=== PATIENT | male | born 1940 | race Caucasian/White ===

== ENCOUNTER 2019-07-21 14:55 | Inpatient (IN) | payer OTHER ==
[2019-07-21 16:18] LABS: Absolute Lymphocytes (CBC) 0.9 K/uL (0.7-4.9); Basophils % 0.5 % (0-1.3); Hematocrit 35.3 % (39.6-49.0); Lymphocytes % 13.1 % (15.3-44.8); MPV 9.8 fL (7.6-11.3); RBC Red Blood Cell Count 3.25 M/uL (4.33-5.43)
[2019-07-21 16:24] LABS: Albumin 3.8 g/dL (3.4-5.0); Bilirubin Direct 0.2 mg/dL (0-0.2); Bilirubin Total 0.4 mg/dL (0.2-1.0); Potassium 4.2 mmol/L (3.5-5.1); Protein, Total 7.4 g/dL (6.4-8.2)
--- NOTE | 2019-07-21 17:08 | RAD REPORT ---
EXAM DESCRIPTION: CT - Abdomen Pelvis W Contrast - 07/21/2019 4:47 pm CLINICAL HISTORY: Abdominal pain with rectal bleeding COMPARISON: 2015 TECHNIQUE: Computed axial tomography of the abdomen pelvis was obtained. 100 cc Isovue-300 was admin istered intravenously. Oral contrast was not requested which limits evaluation of bowel. All CT scans are performed using dose optimization technique as appropriate and may include automated exposure control or mA/KV adjustment according to patient size. FINDINGS: A 4.5 centimeter mass extends off of the upper pole right kidney. The mass contains areas of necrosis. No gross tumor thrombus within the right renal vein. There is cortical thinning left kidney. . Liver, spleen, pancreas and adrenals appear unremarkable. A 7 millimeter retrocrural lymph node. Cholelithiasis. Gallbladder wall does not appear thickened. There is no evidence of diverticulitis. Normal appendix. Proximal rectal wall appears mildly thickened. Small inguinal hernias contain fat IMPRESSION: 4.5 centimeter right renal mass likely renal cell carcinoma Apparent mild thickening of the proximal rectal wall may be secondary to a mass, inflammation or inco mplete distention
[2019-07-21 18:23] LABS: Urine Blood TRACE (NEG); Urine Glucose NEGATIVE (NEG); Urine Protein NEGATIVE (NEG); Urine pH 5.5 (5.0-7.0)
--- NOTE | 2019-07-21 18:59 | EDPHYS ---
Physician Documentation [facility] Name: Patrice Charles Age: 78 yrs Sex: Male : 1940 Arrival Date: 07/21/2019 Time: 14:57 Bed 20 Private MD: ED Physician Kasi Alvarado HPI: 07/21 16:31 This 78 yrs old Male presents to ER via Ambulatory with complaints of Rectal jr8 Bleeding. 16:31 The patient presents to the emergency department with bleeding from the rectum/anus, jr8 that is moderate. Onset: The symptoms/episode began/occurred acutely, today. Context: the patient has no known special context relating to the rectal area complaint(s). Modifying factors: The symptoms are alleviated by nothing, The symptoms are aggravated by bowel movement. Associate signs and symptoms: The patient has no apparent associated signs or symptoms. The patient has not experienced similar symptoms in the past. The patient has not recently seen a physician. Historical: - Allergies: 15:03 codeine sulfate; sg - Home Meds: 15:03 Motrin Oral [Active]; sg - PMHx: 15:03 BPH; Hypertension; UTI; sg - PSHx: 15:03 None; sg - Immunization history:: Adult Immunizations up to date. - Social history:: Smoking status: Patient/guardian denies using tobacco. - Ebola Screening: : Patient negative for fever greater than or equal to 101.5 degrees Fahrenheit, and additional compatible Ebola Virus Disease symptoms Patient denies exposure to infectious person Patient denies travel to an Ebola-affected area in the 21 days before illness onset No symptoms or risks identified at this time. ROS: 16:31 Eyes: Negative for injury, pain, redness, and discharge, ENT: Negative for injury, jr8 pain, and discharge, Neck: Negative for injury, pain, and swelling, Cardiovascular: Negative for chest pain, palpitations, and edema, Respiratory: Negative for shortness of breath, cough, wheezing, and pleuritic chest pain, Back: Negative for injury and pain, MS/Extremity: Negative for injury and deformity, Skin: Negative for injury, rash, and discoloration, Neuro: Negative for headache, weakness, numbness, tingling, and seizure. 16:31 Abdomen/GI: Positive for rectal bleeding, Negative for abdominal pain, nausea, vomiting, and diarrhea, constipation, abdominal cramps, abdominal distension, hematemesis, black/tarry stool, rectal pain, bowel incontinence, flatulence. Exam: 16:31 Eyes: Pupils equal round and reactive to light, extra-ocular motions intact. Lids and jr8 lashes normal. Conjunctiva and sclera are non-icteric and not injected. Cornea within normal limits. Periorbital areas with no swelling, redness, or edema. ENT: Nares patent. No nasal discharge, no septal abnormalities noted. Tympanic membranes are normal and external auditory canals are clear. Oropharynx with no redness, swelling, or masses, exudates, or evidence of obstruction, uvula midline. Mucous membranes moist. Neck: Trachea midline, no thyromegaly or masses palpated, and no cervical lymphadenopathy. Supple, full range of motion without nuchal rigidity, or vertebral point tenderness. No Meningismus. Cardiovascular: Regular rate and rhythm with a normal S1 and S2. No gallops, murmurs, or rubs. Normal PMI, no JVD. No pulse deficits. Respiratory: Lungs have equal breath sounds bilaterally, clear to auscultation and percussion. No rales, rhonchi or wheezes noted. No increased work of breathing, no retractions or nasal flaring. Back: No spinal tenderness. No costovertebral tenderness. Full range of motion. Skin: Warm, dry with normal turgor. Normal color with no rashes, no lesions, and no evidence of cellulitis. MS/ Extremity: Pulses equal, no cyanosis. Neurovascular intact. Full, normal range of motion. Neuro: Awake and alert, GCS 15, oriented to person, place, time, and situation. Cranial nerves II-XII grossly intact. Motor strength 5/5 in all extremities. Sensory grossly intact. Cerebellar exam normal. Normal gait. 16:31 Abdomen/GI: Inspection: abdomen appears normal, Bowel sounds: active, all quadrants, Palpation: abdomen is soft and non-tender, in all quadrants, mass, is not appreciated, rebound tenderness, is not appreciated, voluntary guarding, is not appreciated, involuntary guarding, is not appreciated, no appreciated organomegaly, Rectal exam: Prostate: enlarged, rectal tone normal, Stool: grossly bloody, hemorrhoid(s), are not appreciated, mass, is not appreciated, swelling, is not appreciated, tenderness, is not appreciated, fecal impaction, is not appreciated, the exam is chaperoned by the nurse, Indicators: McBurney's point is not tender, Choudhury's sign is negative, Rovsing's sign is negative, Liver: tenderness, is not appreciated. Vital Signs: 15:03 BP 164 / 82; Pulse 72; Resp 17; Temp 99.5; Pulse Ox 99% on R/A; Weight 79.38 kg; Height sg 5 ft. 6 in. (167.64 cm); Pain 0/10; 16:00 BP 149 / 59; Pulse 68; Resp 16 S; Pulse Ox 100% on R/A; Pain 0/10; em 17:45 BP 161 / 62; Pulse 61; Resp 16 S; Pulse Ox 97% on R/A; Pain 0/10; em 18:32 BP 158 / 63; Pulse 59; Resp 18; Pulse Ox 98% on R/A; Pain 0/10; em 20:12 BP 145 / 66; Pulse 65; Resp 18; Temp 97.5(O); Pulse Ox 96% on R/A; jb4 15:03 Body Mass Index 28.25 (79.38 kg, 167.64 cm) sg MDM: 15:24 Patient medically screened. jr8 18:09 Data reviewed: vital signs, nurses notes, lab test result(s), radiologic studies, CT jr8 scan. Data interpreted: Pulse oximetry: on room air is 97 %. Interpretation: normal. Counseling: I had a detailed discussion with the patient and/or guardian regarding: the historical points, exam findings, and any diagnostic results supporting the discharge/admit diagnosis, lab results, radiology results, the need to transfer to another facility, for higher level of care. ED course: Consulted Dr. Bonilla about star rectal bleeding but is not comfortable with taking patient due to new finding of renal cell carcinoma unless hospitalist is ok with it. Consulted Hospitalist Dr. Pulliam about patient and findings. Wants us to transfer patient because of the renal cell carcinoma as well. Explained to both of them that the bleeding is the main concern. That a renal cell carcinoma can be f/u out patient clark for staging and resection. Dr. Pulliam still wants us to transfer . 18:29 ED course: I spoke with GI and Hospitalist about patient. Discussed with them the GI jr8 findings along with incident Renal Cell carcinoma findings. GI accepted. Hospitalist stated that she would except if hospital mainframe systems administrator is ok with it. Would get back to us in a few moments . 18:50 ED course: [facility] administratively declined patient due to Renal Cell Carcinoma jr8 being an incidental finding. That we have necessary specialists at this time to take care of immediate problem. 07/21 15:34 Order name: Basic Metabolic Panel; Complete Time: 16:41 8 07/21 15:34 Order name: CBC with Diff; Complete Time: 20:53 8 07/21 15:34 Order name: Creatinine for Radiology; Complete Time: 16:41 8 07/21 15:34 Order name: Hepatic Function; Complete Time: 16:41 [facility] 07/21 15:34 Order name: Lipase; Complete Time: 16:41 [facility] 07/21 15:34 Order name: TS; Complete Time: 16:51 07/21 15:34 Order name: IV Saline Lock; Complete Time: 15:50 07/21 15:34 Order name: Labs collected and sent; Complete Time: 15:50 [facility] 07/21 15:35 Order name: CT Abd/Pelvis - IV Contrast Only; Complete Time: 17:22 [facility] 07/21 17:34 Order name: Urine Dipstick-Ancillary (obtain specimen); Complete Time: 18:32 [facility] 07/21 18:20 Order name: Urine Dipstick--Ancillary (enter results) eb 07/21 18:24 Order name: Urine Dipstick-Ancillary; Complete Time: 18:32 EDMS 07/21 20:53 Order name: CBC Smear Scan; Complete Time: 20:53 EDMS Administered Medications: No medications were administered Disposition: 07/21/19 18:58 Hospitalization ordered by Russ Pulliam for Inpatient Admission. Preliminary diagnosis is Gastrointestinal hemorrhage, unspecified. - Bed requested for Telemetry/MedSurg (Inpatient). - Status is Inpatient Admission. ar5 - Condition is Stable. - Problem is new. - Symptoms are unchanged. UTI on Admission? No Addendum: 07/23/2019 09:03 Co-signature as Attending Physician, Kasi Alvarado MD I agree with the assessment and k dr plan of care. Signatures: Dispatcher [facility] Anabell Almeida RN RN mw Jonnathan Suero RN RN Kasi Alvarado MD MD [facility] Kevin Aguilera PA PA jr8 Madeline Vegas ar5 Corrections: (The following items were deleted from the chart) 07/21 18:32 18:09 ED course: Consulted Dr. Bonilla about star rectal bleeding but is not jrSheba comfortable with taking patient due to new finding of renal cell carcinoma unless hospitalist is ok with it. Consulted Hospitalist Dr. Pulliam about patient and findings. Wants us to transfer patient because of the renal cell carcinoma as well. jr8 19:51 18:58 Hospitalization Ordered by Russ Pulliam for Inpatient Admission. Preliminary diagnosis is Gastrointestinal hemorrhage, unspecified. Bed requested for Telemetry/MedSurg (Inpatient). Status is Inpatient Admission. Condition is Stable. Problem is new. Symptoms are unchanged. UTI on Admission? No. jr8 20:59 19:51 07/21/2019 18:58 Hospitalization Ordered by Russ Pulliam for Inpatient ar5 Admission. Preliminary diagnosis is Gastrointestinal hemorrhage, unspecified. Bed requested for Telemetry/MedSurg (Inpatient). Status is Inpatient Admission. Condition is Stable. Problem is new. Symptoms are unchanged. UTI on Admission? No. mw
--- NOTE | 2019-07-21 18:59 | ER ---
Nurse's Notes [facility] Name: Patrice Charles Age: 78 yrs Sex: Male : 1940 Arrival Date: 07/21/2019 Time: 14:57 Bed 20 Private MD: Diagnosis: Gastrointestinal hemorrhage, unspecified Presentation: 07/21 15:01 Presenting complaint: Patient states: Rectal bleeding that began this morning, bleeding sg has not stopped, felt dizzy this morning while at the [facility], reports having had rectal bleeding in the past but not this bad and several years ago, denies N/V/D/Fever at this time. Transition of care: patient was not received from another setting of care. Onset of symptoms was July 21, 2019. Risk Assessment: Do you want to hurt yourself or someone else? Patient reports no desire to harm self or others. Initial Sepsis Screen: Does the patient meet any 2 criteria? No. Patient's initial sepsis screen is negative. Does the patient have a suspected source of infection? No. Patient's initial sepsis screen is negative. Care prior to arrival: None. 15:01 Method Of Arrival: Ambulatory sg 15:01 Acuity: TAYLOR 2 sg Historical: - Allergies: 15:03 codeine sulfate; sg - Home Meds: 15:03 Motrin Oral [Active]; sg - PMHx: 15:03 BPH; Hypertension; UTI; sg - PSHx: 15:03 None; sg - Immunization history:: Adult Immunizations up to date. - Social history:: Smoking status: Patient/guardian denies using tobacco. - Ebola Screening: : Patient negative for fever greater than or equal to 101.5 degrees Fahrenheit, and additional compatible Ebola Virus Disease symptoms Patient denies exposure to infectious person Patient denies travel to an Ebola-affected area in the 21 days before illness onset No symptoms or risks identified at this time. Screenin:15 Abuse screen: Denies threats or abuse. Nutritional screening: No deficits noted. em Tuberculosis screening: No symptoms or risk factors identified. Fall Risk None identified. Assessment: 15:15 General: Appears in no apparent distress. comfortable, Behavior is calm, cooperative, em Denies fever. Pain: Denies pain. Neuro: Level of Consciousness is awake, alert, obeys commands, Oriented to person, place, time, situation, Appropriate for age. Cardiovascular: Denies chest pain, Capillary refill < 3 seconds Patient's skin is warm and dry. Respiratory: Airway is patent Respiratory effort is even, unlabored, Respiratory pattern is regular, symmetrical. GI: Abdomen is round non-distended, Bowel sounds present X 4 quads. Abd is soft and non tender X 4 quads. Reports bloody stool, since 1300 today Patient currently denies nausea, vomiting. : Denies burning with urination. Derm: Skin is intact, is healthy with good turgor, Skin is pink, warm \T\ dry. Musculoskeletal: Capillary refill < 3 seconds, Range of motion: intact in all extremities. 15:29 Reassessment: I agree with previous assessment. hb 15:30 Reassessment: had 2 bloody loose BM, provider notified. em 16:30 Reassessment: Patient appears in no apparent distress at this time. Patient and/or em family updated on plan of care and expected duration. Pain level reassessed. Patient is alert, oriented x 3, equal unlabored respirations, skin warm/dry/pink. 17:28 Reassessment: Patient appears in no apparent distress at this time. Patient and/or em family updated on plan of care and expected duration. Pain level reassessed. Patient is alert, oriented x 3, equal unlabored respirations, skin warm/dry/pink. Patient denies pain at this time. 18:32 Reassessment: Patient appears in no apparent distress at this time. Patient and/or em family updated on plan of care and expected duration. Pain level reassessed. Patient is alert, oriented x 3, equal unlabored respirations, skin warm/dry/pink. Patient denies pain at this time. 19:23 Reassessment: Patient appears in no apparent distress at this time. Patient and/or jb4 family updated on plan of care and expected duration. Pain level reassessed. Patient is alert, oriented x 3, equal unlabored respirations, skin warm/dry/pink. Pain: Denies pain. Neuro: Level of Consciousness is awake, alert, obeys commands, Oriented to person, place, time, situation. Cardiovascular: Patient's skin is warm and dry. Respiratory: Airway is patent Respiratory effort is even, unlabored, Respiratory pattern is regular, symmetrical. GI: Stools are reported to be Chon red blood in stool.. : No deficits noted. No signs and/or symptoms were reported regarding the genitourinary system. Derm: Skin is intact, is healthy with good turgor, Skin is pink, warm \T\ dry. Musculoskeletal: Range of motion: intact in all extremities. 20:12 Reassessment: Patient appears in no apparent distress at this time. Patient and/or jb4 family updated on plan of care and expected duration. Pain level reassessed. Patient is alert, oriented x 3, equal unlabored respirations, skin warm/dry/pink. 20:30 Reassessment: Report called to ABBY Murphy. jb4 Vital Signs: 15:03 BP 164 / 82; Pulse 72; Resp 17; Temp 99.5; Pulse Ox 99% on R/A; Weight 79.38 kg; Height sg 5 ft. 6 in. (167.64 cm); Pain 0/10; 16:00 BP 149 / 59; Pulse 68; Resp 16 S; Pulse Ox 100% on R/A; Pain 0/10; em 17:45 BP 161 / 62; Pulse 61; Resp 16 S; Pulse Ox 97% on R/A; Pain 0/10; em 18:32 BP 158 / 63; Pulse 59; Resp 18; Pulse Ox 98% on R/A; Pain 0/10; em 20:12 BP 145 / 66; Pulse 65; Resp 18; Temp 97.5(O); Pulse Ox 96% on R/A; jb4 15:03 Body Mass Index 28.25 (79.38 kg, 167.64 cm) ED Course: 14:57 Patient arrived in ED. rg4 15:02 Triage completed. sg 15:02 Arm band placed on. sg 15:04 Zhen Clark LVN is Primary Nurse. em 15:14 Kevin Aguilera PA is PHCP. jr8 15:14 Kasi Alvarado MD is Attending Physician. jr8 15:15 Patient has correct armband on for positive identification. Placed in gown. Bed in low em position. Call light in reach. Side rails up X2. Pulse ox on. NIBP on. 15:44 Radiology exam delayed due to lab results not completed at this time. (BUN/Creatinine). ka 15:50 Initial lab(s) drawn, by me, sent to lab. Inserted saline lock: 20 gauge in left em forearm, using aseptic technique. Blood collected. 16:48 CT completed. Patient tolerated procedure well. Patient moved back from CT. bq 16:49 CT Abd/Pelvis - IV Contrast Only In Process Unspecified. EDMS 17:43 initiated a transfer with Anneliese at the [facility]. eb 18:[address] Us GI police liaison officer for [facility] with Kevin AGUILAR for patient transfer eb consultation. 18:17 connected the Hospitalist police liaison officer for [facility] with Kevin for patient transfer eb consultation. 18:47 patient has been Aministratively declined from [facility] transfer riva. eb 18:52 Russ Pulliam is Hospitalizing Provider. jr8 20:31 No provider procedures requiring assistance completed. Patient admitted, IV remains in jb4 place. Administered Medications: No medications were administered Outcome: 18:58 Decision to Hospitalize by Provider. jr8 20:31 Admitted to Med/surg accompanied by tech, via wheelchair, room 220, with chart, Report jb4 called to ABBY Murphy 20:31 Condition: stable 20:31 Instructed on the need for admit, Demonstrated understanding of instructions. 20:59 Patient left the ED. ar5 Signatures: Dispatcher [employer] EDMS Jonnathan Suero, RN RN Megan Navarro, Zhen, DIRECTOR OF STUDENT SERVICES DIRECTOR OF STUDENT SERVICES em Kevin Aguilera PA PA jr8 Criss Shankar Heather, RN RN hb Garcia, Rubi 4 Jayme Anderson RN RN jb Kirstie Portillo Autumn ar5
--- NOTE | 2019-07-21 19:25 | P.HP ---
Certification for Inpatient Patient admitted to: Inpatient With expected LOS: >2 Midnights Practitioner: I am a practitioner with admitting privileges, knowledge of patient current condition, hospital course, and medical plan of care. Services: Services provided to patient in accordance with Admission requirements found in Title 42 Section 412.3 of the Code of Federal Regulations Patient History Date of Service: 07/21/19 Reason for admission: Rectal bleed History of Present Illness: 78-year-old gentleman with a history of hypertension, chronic smoker presented to the emergency department with a complaint of rectal bleed of onset this morning, multiple episodes, last episode was 10 min before I saw him in the ED. He mentioned blood splashes into the toilet bowl after bowel movement, he denied any abdominal pain. He has a history upper GI bleed secondary to gastric ulcer. In the ED, CT abdomen and pelvis reported and thickening in the rectal wall which could suggest malignancy. There is an incidental finding of right renal mass with areas of necrosis suggesting renal cell carcinoma. Patient is admitted for further management of rectal bleed. Allergies codeine Adverse Reaction (Verified 10/01/14 22:23) Nausea/Vomiting Home Medications: Diltiazem HCl [Tiazac] 420 mg PO DAILY 10/01/14 Terazosin HCl [Hytrin*] 15 mg PO DAILY 10/01/14 hydroCHLOROthiazide [Hydrochlorothiazide*] 12.5 mg PO DAILY 10/01/14 Pantoprazole [Protonix Tab*] 40 mg PO BID #60 tab 10/02/14 - Past Medical/Surgical History Diabetic: No -: HTN -: GI BLEED -: eczema -: melanoma -: cataract sx and implants -: skin removal from melanoma - Family History Mother -: Lung disease Brother -: Cancer (Brain cancer, another brother has prostate cancer.) - Social History Smoking Status: Current every day smoker Alcohol use: Yes CD- Drugs: No Caffeine use: Yes Review of Systems Other: General: No fever, no malaise, no unintentional weight loss. Eyes: No eye discharge, Respiratory: No cough, no shortness of breath. CVS: No chest pain, no palpitation, no lightheadedness. GI: No abdominal pain, no nausea no vomit, no constipation, no diarrhea. Genitourinary: No dysuria, no urinary frequency, no incontinence, no hematuria. Musculoskeletal: No joint pains, or joint swelling, no gait instability. Neurology: No headache, no asymmetric, weakness, no problem with swallowing. Except last documented, all other systems reviewed and negative. Physical Examination - Physical Exam General: Alert, In no apparent distress, Oriented x3 HEENT: Normocephalic, Mucous membr. moist/pink Neck: Supple, JVD not distended, No Thyromegaly Respiratory: Clear to auscultation bilaterally, Normal air movement Cardiovascular: No edema, Regular rate/rhythm, Normal S1 S2, No murmurs, Edema ( 1+ bilateral lower extremity pitting edema.) Capillary refill: <2 Seconds Gastrointestinal: Normal bowel sounds, Soft and benign, No tenderness, No masses Musculoskeletal: No swelling - Studies Laboratory Data (last 24 hrs) 07/21/19 15:50: Creatinine 1.39 H 07/21/19 15:50: WBC 6.9, Hgb 12.1 L, Hct 35.3 L, Plt Count 185 07/21/19 15:50: Sodium 140, Potassium 4.2, BUN 19 H, Creatinine 1.41 H, Glucose 93, Total Bilirubin 0.4, AST 14 L, ALT 13, Alkaline Phosphatase 80, Lipase 80 Assessment and Plan - Problems (Diagnosis) (1) Rectal bleed Current Visit: Yes Status: Acute (2) Rectal mass Current Visit: Yes Status: Acute (3) Renal mass Current Visit: Yes Status: Acute (4) Essential hypertension Current Visit: Yes Status: Acute (5) BPH (benign prostatic hyperplasia) Current Visit: Yes Status: Acute - Plan I informed the ED physician to attempt transfer to a tertiary center where IR for kidney biopsy is available so he can be seen by both GI and IR. Patient not as opted for transfer. The patient will be admitted to the medical. H&H to be monitored and patient transfuse as needed for hemoglobin less than 7. Clear liquid diet GI consult Proton IV Empiric antibiotic coverage. Continue home antihypertensives. - Advance Directives Does patient have a Living Will: No Does patient have a Durable POA for Healthcare: No
[2019-07-21] MEDS ORDERED: ONDANSETRON 4 MG/2 ML VIAL IV PRN (20:25)
[2019-07-21] MEDS ORDERED: SODIUM CHLORIDE 0.9% 10ML INJ IV PRN (20:25)
[2019-07-21] MEDS ORDERED: NA CHLORIDE 0.9% 250 ML IV SCH (20:25)
[2019-07-21 20:50] LABS: Blood Morphology Comment NOT SEEN (NOT SEEN); Platelet Estimate ADEQ; Urine White Blood Cell Casts OK
[2019-07-21] MEDS: NA CHLORIDE 0.9% 1,000 ML IV SCH (21:36)
[2019-07-21] MEDS: PANTOPRAZOLE 40 MG INJ IVP SCH (21:36)
[2019-07-21 21:38] VITALS: BMI 29.1
[2019-07-21] MEDS: MAGNESIUM CITRATE 300 ML BOT PO SCH (23:22)
[2019-07-21] MEDS: METOCLOPRAMIDE 10 MG/2mL INJ IV SCH (23:22)
[2019-07-21] MEDS: GOLYTELY 4000 ML PO SCH (23:22)
[2019-07-21 23:42] LABS: Hematocrit 29.7 % (39.6-49.0)
[2019-07-22 05:01] LABS: Hematocrit 26.7 % (39.6-49.0)
[2019-07-22 05:12] LABS: Potassium 4.2 mmol/L (3.5-5.1)
[2019-07-22] MEDS: METOCLOPRAMIDE 10 MG/2mL INJ IV SCH ×2 (06:19→11:44)
[2019-07-22] MEDS: NA CHLORIDE 0.9% 1,000 ML IV SCH (06:19)
[2019-07-22 08:12] LABS: Hematocrit 26.4 % (39.6-49.0)
[2019-07-22] MEDS ORDERED: SIMETHICONE 40 MG/ 0.6 ML ONE (08:24)
[2019-07-22] MEDS: PANTOPRAZOLE 40 MG INJ IVP SCH ×3 (09:00→20:27)
[2019-07-22] MEDS ORDERED: PROPOFOL 200 MG/20 ML VIAL IV ONE ×2 (09:20→11:06)
[2019-07-22] MEDS ORDERED: LIDOCAINE 1% MPF 5 ML VIAL ONE (09:20)
[2019-07-22] MEDS ORDERED: GLYCOPYRROLATE 0.2 MG/ML SYR ONE (09:35)
[2019-07-22] MEDS ORDERED: LIDOCAINE 1% MPF 30 ML VIAL ONE (10:03)
[2019-07-22] MEDS ORDERED: EPINEPHRINE/PF 1 MG/ML AMP ONE (13:59)
--- NOTE | 2019-07-22 16:17 | P.PN ---
Subjective Date of Service: 07/22/19 Chief Complaint: Rectal bleed Subjective: No C/O voiced, Improving Patient seen and examined at bedside. at bedside. Chart reviewed and case discussed with nursing staff. Patient with no complaints at this time. Patient tolerated diet status post colonoscopy with clip placement and epinephrine injection and EGD today. Review of Systems 10-point ROS is otherwise unremarkable Physical Examination - Vital Signs Temperature: 97.1 F Blood Pressure: 148/67 Pulse: 64 Respirations: 17 Pulse Ox (%): 95 - Physical Exam General: Alert, In no apparent distress, Oriented x3 HEENT: Atraumatic, PERRLA, EOMI Neck: Supple, JVD not distended Respiratory: Clear to auscultation bilaterally, Normal air movement Cardiovascular: Regular rate/rhythm, Normal S1 S2 Gastrointestinal: Normal bowel sounds, No tenderness Musculoskeletal: No tenderness Integumentary: No rashes Neurological: Normal speech, Normal tone, Normal affect Lymphatics: No axilla or inguinal lymphadenopathy - Studies Laboratory Data (last 24 hrs) 07/21/19 15:50: Creatinine 1.39 H 07/21/19 15:50: WBC 6.9, Hgb 12.1 L, Hct 35.3 L, Plt Count 185 07/21/19 15:50: Sodium 140, Potassium 4.2, BUN 19 H, Creatinine 1.41 H, Glucose 93, Total Bilirubin 0.4, AST 14 L, ALT 13, Alkaline Phosphatase 80, Lipase 80 Assessment And Plan - Current Problems (Diagnosis) (1) GI bleed Current Visit: Yes Status: Acute Plan: -GI consulted, recommendations appreciated -patient status post EGD and colonoscopy. Procedures consistent withDiverticulosis, inflamed sigmoid diverticulum bleed that was clipped, internal hemorrhoids, gastritis, hiatal hernia and duodenitis of the bulb. -continue to monitor H&H. Will transfuse if hemoglobin less than 7 -patient with tagged RBC scan study tomorrow -will continue IV Protonix Qualifiers: GI bleed type/associated pathology: unspecified gastrointestinal hemorrhage type Qualified Code(s): K92.2 - Gastrointestinal hemorrhage, unspecified (2) Essential hypertension Current Visit: No Status: Chronic Plan: Stable, will continue home medications (3) Renal mass Current Visit: Yes Status: Acute Plan: -CT scan imaging with an incidental renal mass, consistent with renal cell carcinoma. -patient will need outpatient follow up for further workup. -it was recommended that patient be transferred from the ER to a tertiary center where IR until kidney biopsy for the mass but patient refused to transfer at this time. Therefore he was admitted at our facility. (4) BPH (benign prostatic hyperplasia) Current Visit: No Status: Chronic Qualifiers: Lower urinary tract symptom presence: symptoms absent Qualified Code(s): N40.0 - Benign prostatic hyperplasia without lower urinary tract symptoms - Plan DVT prophylaxis: No chemical anticoagulation due to bleed GI prophylaxis: Protonix as above Diet: Full liquid Disposition: pending symptomatic improvement and workup. Anticipate discharge home in the next 24-48 hr once cleared by GI.
[2019-07-22] MEDS ORDERED: PNEUMOCOCCAL VACCINE 0.5 ML IMVAC ONE (17:00)
--- NOTE | 2019-07-22 18:24 | EKG ---
Test Date: 2019-07-21 Test Time: 22:14:51 [employer] Systems Repairer: NAKIA MEASUREMENT RESULTS: Intervals: Rate: 59 KS: 154 QRSD: 134 QT: 470 QTc: 465 Peetz: P: 27 KS: 154 QRS: -1 T: 26 INTERPRETIVE STATEMENTS: Sinus bradycardia Right bundle branch block Abnormal ECG No previous ECG available for comparison Electronically Signed On 07-22-19 18:22:46 CDT by Wilbur Marcelino
[2019-07-22] MEDS: GOLYTELY 4000 ML PO SCH (20:28)
[2019-07-22] MEDS: MAGNESIUM CITRATE 300 ML BOT PO SCH (20:28)
[2019-07-22] MEDS ORDERED: TERAZOSIN HCL 5 MG CAP PO SCH (21:00)
[2019-07-22 23:54] VITALS: O2SAT 96
[2019-07-23] MEDS ORDERED: HEPARIN 500 UNIT/5 ML SYR IV ONE (06:09)
[2019-07-23] MEDS ORDERED: FINASTERIDE 5 MG TAB PO SCH (09:00)
[2019-07-23] MEDS ORDERED: FOLIC ACID 1 MG TABLET PO SCH (09:00)
[2019-07-23] MEDS ORDERED: DILTIAZEM HCL 120 MG SR CAP PO SCH (09:00)
[2019-07-23] MEDS ORDERED: DILTIAZEM HCL 180 MG SR CAP PO SCH (09:00)
[2019-07-23] MEDS ORDERED: DILTIAZEM HCL 420 MG PO SCH (09:00)
[2019-07-23] MEDS: PANTOPRAZOLE 40 MG INJ IVP SCH (09:14)
--- NOTE | 2019-07-23 09:27 | RAD REPORT ---
EXAM DESCRIPTION: NM - GI Blood Loss Imaging - 07/23/2019 7:44 am CLINICAL HISTORY: Gastrointestinal bleeding COMPARISON: None. TECHNIQUE: The patient was administered 26.5 millicuries technetium labeled red blood cells. Dynamic images of the abdomen and pelvis were obtained for 20 minutes The patient refused additional imaging and the examination was ended FINDINGS: Increased radiotracer activity is present within the lower pelvis midline. Remainder the exam is unremarkable IMPRESSION: Increased radiotracer activity involving the lower pelvis midline probably physiologic w ithin the penis. Uptake within the rectum has a similar appearance. Unfortunately the patient refused to have additional imaging so a a lateral view could not be obtained which would help differentiate between the 2 possibilities. Limited evaluation as the exam was only performed for 20 minutes.
[2019-07-23 13:32] VITALS: TEMP 98
[2019-07-23 18:00] VITALS: BP 131/61
== END 2019-07-23 18:37 | disposition home or self-care (01) | DRG 379 ==
LOC: ER 14:55 → 2ND 20:43
PROVIDERS: ADMIT Family Medicine; ATTEND Internal Medicine
PROC: 0DB68ZX Excision of Stomach, Via Natural or Artificial Opening Endoscopic, Diagnostic (ICD-10-PCS; principal; 2019-07-22 09:30)
PROC: 0W3P8ZZ Control Bleeding in Gastrointestinal Tract, Via Natural or Artificial Opening Endoscopic (ICD-10-PCS; 2019-07-22 09:30)
DX: K57.31 Diverticulosis of large intestine without perforation or abscess with bleeding (principal); K64.8 Other hemorrhoids; D64.9 Anemia, unspecified; K22.2 Esophageal obstruction; K44.9 Diaphragmatic hernia without obstruction or gangrene; K29.70 Gastritis, unspecified, without bleeding; K26.9 Duodenal ulcer, unspecified as acute or chronic, without hemorrhage or perforation; K29.80 Duodenitis without bleeding; I10 Essential (primary) hypertension; Z85.820 Personal history of malignant melanoma of skin; F17.210 Nicotine dependence, cigarettes, uncomplicated; N40.0 Benign prostatic hyperplasia without lower urinary tract symptoms; N28.89 Other specified disorders of kidney and ureter
CPT/HCPCS: 36415; 74177; 78278; 80048; 80076; 81003; 83690; 85014; 85018; 85025; 85610; 86850; 86900; 86901; 87493; 88305; 88312; 90670; 93005; 94760; 99285; A9560; C9113; J0171; J1642; J2704; J2765; J7030; Q9967

== ENCOUNTER 2020-10-31 17:10 | Emergency (ER) | payer OTHER ==
--- OUTSIDE RECORDS SUMMARY | 2020-10-31 17:13 | XMS REPORT | Continuity of Care Document ---
:[address] [facility] t Address [address] [place] [address] Care Team Providers Name Role Phone Elder Tam Primary Care Physician BRENDAN RIBERA Attending Clinician Unavailable Brendan Ribera MD Attending Clinician Eber MARISCAL Marlon Attending Clinician BRENDAN RIBERA Admitting Clinician Unavailable Payers Payer Name Policy Type Policy Effective Date Expiration Date Sour ce Number MEDICAREMEDICARE A [id number] 2005 YAMINI S t Yovani [id number] 2005- 00:00:00 - [facility] Problems Condition Condition Condition Status Onset Resolution Last Treating Co mments Source Name Details Category Date Date Treatment Clinician Date Renal mass Renal mass Disease Active C [facility] Center Allergies, Adverse Reactions, Alerts Allergy Allergy Status Severity Reaction(s) Onset Inactive Treating Comm ents Source Name Type Date Date Clinician Codeine Propensi Active Nausea And 2020-[address] to Vomiting 5-11 [facility] - adverse 00:00: Medical reaction 00 Center s Social History Social Habit Start Date Stop Date Quantity Comments Source History of tobacco Snuff User [facility] use [facility] History SDOH [facility] - Alcohol Std Drinks Medica l Center History SDOH [facility] - Alcohol Binge Medical Yannick ter Sex Assigned At [facility] Cigarettes smoked 2020-03-20 2020-03-[address] [facility] - current (pack per 00:00:00 00:00:00 Medical Center day) - Reported Cigarette 2020-03-20 2020-03-20 [facility] - pack-years 00:00:00 00:00:00 [facility] Tobacco use and 2020-03-20 2020-03-20 Current user [facility] exposure 00:00:00 00:00:00 [facility] Alcohol intake 2020-03-20 2020-03-20 Current [facility] Eb es - 00:00:00 00:00:00 non-drinker of Medical Ce nter alcohol (finding) History SDOH 2020-03-17 2020-03-17 1 [facility] Frequency 00:00:00 00:00:00 [facility] Alcohol Comment 2020-03-17 2020-03-17 none since [facility] St Patricio kes - 00:00:00 00:00:00 07/2019 [facility] Smoking Status Start Date Stop Date Source Current every day smoker 2020-03-20 00:00:00 [facility] Medications Ordered Filled Start Stop Current Ordering Indication Dosage Frequency Signature Comments Components Source Medication Medication Date Date Medication? Clinician (SIG) Name Name dilTIAZem Yes 240mg QD Take [address] (CARDIZEM 5-16 mg by [facility] - CD) 240 MG 13:32: mouth Medica l 24 hr 57 daily. [place] capsule b complex Yes 1{tbl} QD Take [address] vitamins 5-16 tablet by [facility] - tablet 13:32: mouth Medical 57 daily. [place] ibuprofen Yes 200mg Take [address] (ADVIL,MOTR 5-16 mg by [facility] - [place]) 200 MG 13:32: mouth as Med ical tablet 57 needed for Center Pain. traMADoL 2019- No 50mg Take [address] (ULTRAM) 50 5-16 05-26 tablet (50 L [facility] - mg tablet 00:00: 23:59 mg total) Me dical 00 :00 by mouth Center every 6 (six) hours as needed for up to 10 days. Max Daily Amount: 200 mg docusate 2019- No 100mg Q.5D Take 1 [facility] t sodium 5-16 05-26 capsule [facility] - (COLACE) 00:00: 23:59 (100 mg Medic al 100 MG 00 :00 total) by Center capsule mouth 2 (two) times daily for 10 days. docusate 100mg Q.5D Take 1 [facility] S t sodium 03-22 capsule [facility] - (COLACE) 00:00: 00:00 (100 mg Medic al 100 MG 00 :00 total) by Center capsule mouth 2 (two) times daily for 10 days. Vital Signs Vital Name Observation Time Observation Value Comments Source Systolic blood 2020-03-22 07:26:00 156 mm[Hg] [facility] Diastolic blood 2020-03-22 07:26:00 71 mm[Hg] [facility] S t [facility] Heart rate 2020-03-22 07:26:00 73 /min [facility] Body temperature 2020-03-22 07:26:00 36.22 Jayne [facility] Respiratory rate 2020-03-22 07:26:00 18 /min [facility] Oxygen saturation in 2020-03-22 07:26:00 94 /min [facility] Arterial blood by Medical Ce nter Pulse oximetry Body height 2020-03-20 06:00:00 175.3 cm [facility] Body weight 2020-03-20 06:00:00 97.1 kg [facility] BMI 2020-03-20 06:00:00 31.61 kg/m2 [facility] Procedures Procedure Date / Time Performed Performing Clinician [facility] e RHYTHM STRIP - SCAN 2020-03-24 11:41:42 Provider, Default [facility] HEMOGLOBIN AND 2020-03-22 10:27:00 Jayme Sim [facility] HEMATOCRIT [facility] HEMOGLOBIN AND 2020-03-22 04:39:00 Jose Gavin [facility] BASIC METABOLIC PANEL 2020-03-22 04:39:00 Jose Gavin [facility] (7) Medical [place] TRANSFUSION SERVICE 2020-03-21 17:51:03 Provider, Default [facility] REPORT - SCAN [facility] HEMOGLOBIN AND 2020-03-21 04:16:00 Jose Gavin [facility] HEMATOCRIT [facility] BASIC METABOLIC PANEL 2020-03-21 04:16:00 Jose Gavin [facility] (7) [facility] BASIC METABOLIC PANEL 2020-03-20 20:04:[address] [facility] - (7) [facility] ECG 12-LEAD 2020-03-20 16:52:05 Unknown, Hl7 Doctor [facility] HEMOGLOBIN AND 2020-03-20 13:31:[address] [facility] - HEMATOCRIT [facility] BASIC METABOLIC PANEL 2020-03-20 13:31:[address] [facility] - (7) [facility] MAGNESIUM 2020-03-20 13:31:00 Pawan Velázquez [facility] ECG 12-LEAD 2020-03-20 12:50:09 Unknown, Hl7 [facility] TISSUE EXAM 2020-03-20 12:06:00 Jett Ribera [facility] PREPARE LEUKO-REDUCED 2020-03-20 08:31:00 Erick Alexandre [facility] - RBC [facility] ROBOTIC 2020-03-20 07:45:00 Jett Ribera [facility] LAPAROSCOPY,[facility] -PARTIAL PROCEDURE W/ DAVINCI XI 2020-03-20 07:45:00 Jett Ribera [facility] ABORH, MANUAL 2020-03-20 07:21:00 Joi Cadet [facility] TYPE AND SCREEN, 2020-03-20 07:07:00 Jose Gavin [facility] AUTOMATED [facility] Plan of Care Planned Activity Planned Date Details Comments Source Future Scheduled 2020-07-08 INFLUENZA VACCINE (#1) [facility] Test 00:00:00 [code = INFLUENZA Medical Ce nter VACCINE (#1)] Future Scheduled 2006-10-[address] [facility] - Test 00:00:00 WELLNESS (YEAR 2 or Medical Center FIRST YEAR if no IPPE) [code = MEDICARE ANNUAL WELLNESS (YEAR 2 or FIRST YEAR if no IPPE)] Future Scheduled 2005 PNEUMOCOCCAL 65+ YRS [facility] - Test 00:00:00 (1 of 1 - Medical Center [id number] PCV13) [code = PNEUMOCOCCAL 65+ YRS (1 of 1 - [id number] PCV13)] Results Test Description Test Time Test Comments Results Result Comments Source Tissue Exam 2020-04-01 15:59:00 Test Item Value Reference Range Interpretation Comme nts Case Report (test code = 104) Surgical Pathology Report Case: [id number] Authorizing Provider: Jett Ribera MD Collected: 03/20/2020 12:06 PM Ordering Location: [facility] PERIOPERATIVE Received: 03/20/2020 01:53 PM SERVICES Pathologist: Emily Young MD Specimen: Soft Tissue, Other, RIGHT RENAL MASS DIAGNOSIS (test code = 3220) [id number] pcdW TkQJmohfIfQAgbb2MbJ7FzRzFwWTtxlkChEOVpYxug lkjyVJFkBFJ0tpFdHQUmKBhkWIMmXPocYg4rwKHpbC snSrKqWXXbm3lsslUFmujspJy7p4znDOUuMtK9pIFr PFkcV5qxquRrbTLtVZTbJYe1aF03AUMznF7lbNDdFJ bzxvLhOmX1VAxwJBJxGpB9DUPebASbNEDdG5ukUGUw FZbhVBJxMAxywGYhXPI3nIlov9F0rYJrvUAabRzdDp DpJgKdRBAWf7PeXLm5yOgwD2VdTGLaIwJ3mCJnIWFi ZAlpNWEuKEHdeuY9rC41EVcphfB3nCGry7Xqq30tp5 43nG8ayBDqWYG2MHEqFDUnoBLlDDInPOV4MEOeeVSe Q5w7UvNftWJbL1X0VvWjxSKzK8S5QwFmgWScS4P5Ey QmsAMlMSTeuVBvTt8udUNakLFhqo6rkg98OOF0m8Mt xQhfYNO3GJQ3YkYxLa3ujWAvDMOcZA7gFdQbuIOzXJ Tzck31hBfgTOxsppOskF1fOoMrLVSfxPEhAOWpKZ0b iMJjGNVcuH1ikozjYNDsRdLfvtdlMQNrjIxmbeWiCa 4fsNnpGXY2FMfwC8cmmD6tBcI7XRuoW7araV3fBKw8 HRgxwKC6SQYawB6jMO7lhaqog6dlHqFtBN4qkybli6 ybGmUqXM6zcds5y7xfIpJpTE3wfhrgp9bdGaXbAPpn SLOxymawZNTxm7ThnjljTUNhv5LtB8NsjTpfI91jwC spO70bYDCncJmghD4uhFrjfL0vOuQfAtUgCXfsoXzj jVJeizraYTzkcxCgDHmbdbkiKZMhCImpD2peZtYsDX DrkVppELzan4VrSGCsRHMhXgMuU9eWFgIDRUXABJcV HXQOCE2JOQSDSVFBOKImIYNAGHpZBYZVUNZYTuCHMP 9NWVxwYXIgLSAgICBDTEVBUiBDRUxMIFJFTkFMIENF DAsdX5ULW9tXJ73QMYbpBHVaBNBdTTQLJ6GRD9xAVy LNUbEDIYWlCMAycxCwXZOtKS2IV7LSI0kZVFGPFCWF TlQgKCB+WcMoZHaaUVChPDTcHWBNZYJFApLIUE7XCE KFTLGQEA3qNO4QXTUCMmKtTACZTLJDY65SWN1PFSnj WDHjGGZyMOFUKXZBVXqOKgLCRbHUVQ5VQYdNAChVEi pUMSMCMs7YPfZKLZZDNeCWLKzEVSQoS90KGHBSKEkx gIRjZP4yGUClZ9dJKVGtOsTTKSiHJiPQHR7IEP3PJY VVSFKAIHwTILKZDZLhnrRdIOHdIM0RXZCVZwVBJBDX V0nAFP6GVOAPMCBYX1nVVZUHMV5QXGBXGTVHBHMndi CuJFAtUCTTKGwWKK5RUCWuA7SXV3SvO3zWR4LYShyD MKPAK60uKXPAIu3hUMLRT0KhTSTmXRAhgZIev38kpV VyBPGmMfmtpV78HQKagfLkPODiFCVIHXLMOV8XSAZX GoLFUXSPBcSmwVxkhX3nEhUrZgSnLEjzXO2aRSWlE1 wadDOtCHAnMDBpV9kiZeDjvD7cdXcaBHobCdAhFhJl LWyvCNHdbJCttXfjgtJwUYymz7IcJXyrCKFhTX2aqJ zjLVVnML0rJKGzL0zmjI9xbav4PvLaFOIbDjI3QEAx ywS3Gcb9WBUjTWwka6ret2EkMTEyXFx9lSylVtUfJC Xkf7yrzeJmHiGvQBJaDYNeKXCacXIcS676q8xqt6aa zmPlhQJ6BVVtFEN5DQumksRtrvR9UHvvvFVgWrT3UX bfrkKbMFveosAwgcIkThx3GCTbP462XUK8lMsqw9ud OCC4FSVjWKYkRwOoDz9zxTYuR588ILHmHHZWJTLdpF i7VPXugfZrevBcqWRMy625G813m4myQQDcehCktBzF eqobn1chY102EAKceZNdraHxPpBxFHNbkARlrJY3IR WuMB5poqagRCrwSMyuJPNxpwW4YUYrkEPlK6TbKMBf OV6nftvoZEV4DTksRSZnPKP6DuHxZROml7Rlwdy3Ig Coen2wqp89PHY1g3VwvJcxMGO3IVM2IsQfVo0rfYSm TLJcPM3iYfYheDGyCSTmji99mUjzDGktRCP3PITazy Ibi3Wpp9eaOqTltzUmI4afR5BvFILkSIJmPVPtHgLe doWak7Qpt3SqiNZxyPr4u2peGVLoDMRmjLwsd0lpHE S4QYNusYBxK6gohM6nMYGvRP3vfmsas1geYAyzEQhg OCOzeDP4bwJ3XXJkuTOvD9PlvM7xYNYjLHfrGVYtla x8AqJzAn6bhFBlfWzhZVpyMmeuXBizVKRdwxRqkeBb cGduZGVjXHBsYWluXHBsYWluXGYwXGZzMjRccWxcbG EqFnSlQlTqcWekrRzmHEfkMeIfBDTqURqiZ6dmJcLz FdJxNcx1ZWYmqYFdBIFdDfv5GFWolJUuFQTIqNayaP 9mUEQcsJskpX1fwSU7KWXhssKizEZVlA2tTTMOhR7a QvA9FcKtSaE3ZBTlXSvmoRMrmS2= COMMENT (test code = 3359) l2clwILtRZOwbWWsEyHfUMPqWNSrq0ufNJUpuFUe Zz JdFrCkVgTjVbabjAObOBYgOcYhu6zzx027qKAiv7ur RSOqZfV4xERuUHRjjLRxP749PXFkOKrwx0qpt4YhQZ CzsPNeo4L8KPMJhaazxUr7jIwzP30ba7Y6IzsqA6ga PXHuKWOcX8YgPL2uKMZnBac8OLD2LTF5CSSjTIHtE7 IiEF0fBSIxfVQyDPj7w0oesHalNQSyVXX2w2cePFay ffRyPQ5jbu8tkPj7y8csmeNfCUDdVXAzwGYEHKAqC5 VaiQeaLv4ueNp4bMksBrklYZL8Giy3YG3oqm21kqc9 zLohLNXqljfcKsO3ABctIEKbwwomOQf2MNviQOCghO cyMFxtYXJncjcyMFxtYXJndDcyMFxtYXJnYjcyMFxo AZCiUTU7SGcjw405UFX1IHkts3ait7zytQHhNdw8VN UhAeCkVqshNLqvb1Ejr7daVNWylb2rEQU4nNTskAjl m7K3pIQvOGOplTCfbcRjKHIkQwS6GJrkNG3lrj32YE AsHWF0hh9ihEQctSqdnqWgjYRsNNqwU5TaPUWbx807 QKIdA5UkHOJav0B1voJeAlBrFQJmfOS1nqS8NBGoMX e2dTYmupX9kcBeqNUkU6tczJ53ZjYdgRPlD2OpmQ11 EjHnkMAiK3AzyO21LgRzjRGkO8LofT81GcBumXMtVJ XhuWQnSi4elJDayAObp9SliGRcWFluK25xh486UIKg hkEkF2klgVNvjlbjeJRkdahbXHjiwaS4XZLxMMTsAC luXGYxXGZzMjBcbGFuZzEwMzNcaGljaFxmMVxkYmNo HIThSKefS2erGyCnTtEsAZIJmDZae3uzmPCkXcO4H6 DbdrImA7p9vTTiSJ4seqimxyQhoiLky3FzoCj1JTTr s4A7dJEtWHL7tELhUIQdikNfyl6pCYFaxQB0jVBewC 8wGSTqb2HqDuClABNjzoZqpFrkMAVxjrPwln2bRPGp veAtOAEmQGyckMggdwXtBMtxbqmlRHJbqm13irGwnI WdynDkRQ4zDBJthHrdekFpwxXlAeXSzKbinJRkpUDq g7XaHNudaPqwqcDocmOzHDOyjJ2dbxHsKZP1crRlg8 Ehb5JbtYreKGGxrEFdOTEbmgInylCcImDpyIVkz2yy uk7vOQWxjt8= SYNOPTIC REPORT (test code = 71) KIDNEY: Nephrectomy (Kidney - All Specimens) 8th Edition - Protocol posted: 07/04/2019 SPECIMEN Procedure: Partial nephrectomy Specimen Laterality: Right TUMOR Tumor Site: Upper pole 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 Histologic Grade: G2: Nucleoli conspicuous and eosinophilic at 400x magnification, visible but not prominent at 100x magnification Tumor Size: Greatest Dimension (Centimeters): 5.7 cm Additional Dimension (Centimeters): 4 cm Additional Dimension (Centimeters): 3.2 cm Tumor Focality: Unifocal Tumor Extension: Tumor extension into major vein (renal vein or its segmental branches, inferior vena cava) Sarcomatoid Features: Not identified Rhabdoid Features: Not identified Tumor Necrosis: Present Percentage of Necrosis: 30 % Lymphovascular Invasion: Cannot be determined MARGINS Margins: Involved by invasive carcinoma Margin(s): Renal parenchymal margin (partial nephrectomy only) LYMPH NODES Regional Lymph Nodes: No lymph nodes submitted or found PATHOLOGIC STAGE CLASSIFICATION (pTNM, AJCC 8th Edition) Primary Tumor (pT): pT3a Regional Lymph Nodes (pN): pNX ADDITIONAL FINDINGS Pathologic Findings in Nonneoplastic Kidney: Glomerular disease: few sclerotic glomeruli Pathologic Findings in Nonneoplastic Kidney: Tubulointerstitial disease: atrophy and chronic inflammation CPT Code(s) (test code = 3357) s2rseRQlZFUlqJVdNuTpPMYdKOEda3loXJSm bGFuZz MzNqXmMsDwOzbfcRGyGZXsApKam9mgy614tFPxr5mm SCCmQiY1dMJiPBJedRJeL646MAHpPOepq2pwl4MxAK VsvVWhr6K2BBFAhewfiKs5rQjuH27zg1H9XnuxR6ll EBMxPZJxS8PbFG3mVURvJji7PNS5WNZ2TIXtBHSkO7 AvJS4fJJYcdLErTMj8x5hzwJacFXQkIDZ4z9bvETgm leJrUX0iea8tjGn8e7murvWkDDViIDTqzLGCFOJxE9 HgkXjcZe9pyEo6oSevVemdUNF2Vve8II0vnp71djm7 wUwdHHTbueyyWoU2BGvmENHlyanlAZa0BDswRZOqfP cyMFxtYXJncjcyMFxtYXJndDcyMFxtYXJnYjcyMFxo BAWcKFQ3IWksa539JNS6DVlgr2ewg1hbgFFaDjg7CM CtMqIwEstcWXkbh6Mtz9mnZIDswd2fBCC6cPNskNdn u6H0oXYsFQWfqWKgiqYbZYMyLzT1BUugPC5ied85AK NxRYV9ha6ltDJudBkzgePeuTPnLYgdH1QgXFLsp027 CLArG0NiORIqq7Q6uzLoErYmWZGwzON2uoN4KUMoGN y8dPVbufB5kfMzlJPqR1tnnT15WaMylIGxL6YsjH17 ZrUliKJnX1VcmG37UbDfqTZdL2ReyI08GpHooKXsIM GfcAGwHn5uiITzdCCgm7JyhCBwMKpxX04pc562DPEs mbZqB7aesDGelnbeaFAepwweZAazoiE1EPWpIMSsOB luXGYxXGZzMjBcbGFuZzEwMzNcaGljaFxmMVxkYmNo IWXtXUmoP4yjVjSaHwTpYRP4TVErMrxsJJclZJSlCU o4LkGxZVIihp2= CLINICAL HISTORY (test code = 3356) t2xcuPObEIEyaVSnUyHaMGWqHSYr v0znYUBuuPMsOp DiFrGyKiCuWaxyrXDyGKKvHpTzy3snl735uQMrp6fm NTJwMuK6yKAhQTXmqUVvD115k3fjl3jvbaKpnOX5VL FrDDW7CIsxeoWhqoS5SUekgQLfDqF4NOdvjwBmDJvi mrSrtnUvLfx9PHCrB882RNX9jQrxd8jjWRR0SJSiIT QzRaBzNp0pzWUlS351YUAsANRFRASvdOs6MQAbjiXp oyHntSQFk827V764q8ciJXIysjFupQcHnkucn1inM6 79UGWxkMWttgHrClUqLYFwwGWpoEV7VXZkZH0avtjj YlScYC4vzxnsPzZfJS2eklj2QxFpQS2dleboZpFeIH laJTDtwrdmCOSvk5NpzhpsGE0iB1Wjc2K5yV0pnIDe SKHknFLrNaXvQLNwgy5ckOPmTWhzg6ZkHPH8aaP5cA QdhNZtXEPsDG71Pzqyr8BqFxbfRNQ7PITtipIup8Zf m2fvKhZwqzNbZ1gjB4LgZGLtQLLwLMHiKmOvtbKuk7 Cbc9LlxNSymEf6y2zjTCJkHXNkdXrjj3sjWMV1GCAx Z4Z2vTYbn6nlISibXGFkeLE3tpawGZypEESxqiM4qm fcZVbtTFFggQN2flasBRqoUVGeVlE1neudGLdbIJEr NYJ0GCbke707FJI1GCbrHptbDMkqTPRtraBhgcSraP duZGVjXHBsYWluXHBsYWluXGYwXGZzMjRccWxccGxh zV9uBhWiMnOrKWykMC9nQPKsQ0clwBOwGCRqNXUzQ3 dgQjAbrA2jzHajFTzkahNkTEEldjCjCU7yj5YudDZc XHBhcn0= SPECIMEN SOURCE (test code = 3377) e5pieUOmYCZgoGXyJcKeFXDiYKTra0we ZGVmbGFuZz DyRpZhUmLtQjohgHQwKVTeJbTps5kbh990mKKjz7dd SSVgQlM8pWOkHXCulWYgX974RIIcGHbfp2usu0EwUZ ZkuHGzh9A5ZZTIozkenEh4zHivY52oa2U3ObrlG8tf FAPoXMIxF9WvNF8yTMSaWup2KRK5YEH8SSAlYFTeW3 OeYU9hJWLuzAUuVRk4a1hohItrSXAeGFB0t0ioPNyw cuUtOD4xiq0xgGh8c1jfpgYmYWMdPBLudZKNUXXjN1 IdbFppAo8wzVz3nEnrEwmgXRU6Kcm0TC0pgu61cyi8 jIjtDVIogytaKrC8HYbcCXEatzkzLXb1ZSdwFNNwwO cyMFxtYXJncjcyMFxtYXJndDcyMFxtYXJnYjcyMFxo UCAzUUS1QAvsf104VIQ2JGxmd2wkv5yssOFcBkf1SO WbRlIvQyleGTtlh6Xtm1syLCRdxz0pSVF9pZTttBhj n2X1zICvZCSseIMiawKpKBLvAxA9FYnoEG5rwd72SG DqXMM1eu5mdCLfxNviukGiqDUuSUbgI4QmPBFzw891 SIYrR5NcXDEvg5Z6eoExPlWiHQZdtHJ6kuD2IFMzZM y6jAFwkbP0nrQbkASkN8xqzE72TnApoSLmG5ZznJ26 HyUcoPBlS4YmrE88YpNlfZTdV6GkrV54EiFycLXyQV UinKJlAf7hlFYvbKLhp7UgyLJyDTpnF68dc541IJWg bkSzF2keeJVqmpqhrZKvgchhDUdxpzZ1BLPgapNkmV bypE3dBzTpIwNrMAvvGZ0zOFEiQ2kaiHBsIOSwTWDb Z9onFqFjcD8hoBtwJBqgegJdKLVrYIIWhEbspWSkFM 7ekTKmGGBuWJRtag8= GROSS DESCRIPTION (test code = 3366) b5hckVFkNSYdsJNvOoFhRKS zAPSvh0vtHKQihKPjDg VfQyFwJoXjEkjnvGCpQUBvPqXfr7nnf106nVMve8ts SDHiVnK5vTSdXQUicRMpY224ROYcSPejj0fgx7CmOO HthYXhg4B3TBQBaelpmFz3dAuyN13uf0L7LtrbK1hz CCLqEVTuL0SxKZ2sHLMqKlf7MCL2HPU7JVNuZBWoI6 TwCM2cCONbiIOyAOe3p1etoLurEBUlUKO3h2pwZWhg guJaNL4wcc8teTf6j5fuvxPaKAMdHZPiiOHFOWWmP6 SkdOoiUp3apEz2vErqTixuPPZ1Szw1KP4grx44oei3 yPvgRLCeifxhKnY0GRkaOBGnagevWBj4RBopWKJqiF cyMFxtYXJncjcyMFxtYXJndDcyMFxtYXJnYjcyMFxo MUTzFAT1VHzcj000IOQ5VLqnc4vvg1orbWKcDom1KD OfZyPgHptxHAmyk7Nlg6wvUJTpho6fOWM1vPFxgGwa s0H8dFNgNUAyyBRxuvRvNPVrXvY1EVinIX8xkm60HV ZzGJI9ow7hqFTnlIneuiPudRWmQOxgK9JwAUPdi493 CGZxQ5XsOYOxb8N8ezMdWjYpANUqpUY1pfK3BKQiLV r8pDWstqC3hkHzuRHxU0aixX33VfNjxRNvP8LrlR75 AnDblZZqX5ElpY79HaQfrICwK4GgvA47XbUesNUyVV PveDAlQb5mrVUtyEZci7TxmINiJXvsZ14wx451DXZt exOpF2atnCTpbqxscMIlrigfPAsxfrP5KCCaMOTnNN luXGYxXGZzMjBcbGFuZzEwMzNcaGljaFxmMVxkYmNo UIFwYPlvA4xiJrAdRqOtPINUHeBLsFIib2ZgN0zcUX 4sbYGkdzLePIk5DROuOvWva6vmbDItAIteZOWcz0e7 tKU1eFVrkSI5tFZfwYbvRyPtMK3xlOElSX7hNLhbQR zmrsXuy4AnLO89uIUqfcVkemCnIuRhb5J8OUBbv2G7 NZwji8SeMUOaIHApMYZxu59mgEM5gyUhUfPnOBIvUQ hbQCOcFNH9MFNgAaA4BJOuVmZixYQqsd7gQXLzq5W3 lD3kYY5aHHZjjrZdHD7tdAEjWOSpsnLwyE1jQiWkHB fqexVyHXVstAHzSDBcbnO0qRNfN16mnVCeznQgZYih AISsIEMdxYBuyCSaA1egPCVia2Q4zK9qXP1rSUHgas VtYXJrYWJsZSwgdGFuLXllbGxvdyBwZXJpbmVwaHJp [file] zOJ1XCENuaWKJ6 MICROSCOPIC DESCRIPTION (test code = j8pmdTWgVSUcaCAqBfPdCMD qQQLtc9ajITCtkNAiFq 3371) AiAaFtRvImIoxjnBFaKNVbReXkw1lrg190iSBwe0pu VWJtEkG5xHIoAGKujCBhL512t1lwn9etwcKrpAP9FS PvBZT8WQxqqeLkgdP8VMiglAYnJkP5MBswmrGvKBpv kpOgmqCzFcw4AZQaD330IFB2qZott7mqSDL6UEMdEP LtDfQfFe0ktCOpA204OTSqQFWOBHTydVl5BCTwimOt goNuwBPDa444J223c7iiVNHtqtMuzRmJuhndo3vaT4 36SQCdyLMytjHzRqXpKIYltDNkyNQ2MLQqJL4jldcb JjRrBS0xqefjOcQkDW1cdix7NjGuLC8jejmwGzHqDT fzISOgqnliQFWto0WnhegnJP4iA1Iuq4U6xK0xtGKg WMZeaMMrVeLuEZVbqi9gyRVsWUwvt0XbBGP4gjY0bK XjrGFgYRYoBE58Dhjhh8JfOndmJHP3PZNdvbAax1Lx j6dyDzPycnLuM1zfD2MsGOStJJOgXGTnLlHfnlUjk9 Rnt6TcwFHarXe7e0urUNKvFZDvsSzdi3ujCSX1FCOj R4Z5cNLep5heKUjxCNIaqPN7wbhiTLwdUDMeudW2dk miJVxaSUSacBQ7yfpgWQqmGDJsWpW6xdmsZArnUUIt IXH6BAdxe143ULJ0MJvqSswzWIraGBUyeeUqocFwqJ duZGVjXHBsYWluXHBsYWluXGYwXGZzMjRccWxccGxh qL3eRsBvFzBjPZtfDS1nQMVyI5eogMLyXZKmEHGxS1 ypOpRyaX4gzGcgJSwytiAvMCNrlwQybi1mDP8irRPi fQ== SPECIAL STUDIES (test code = 3376) g5vqrGKlVKIvcWFgXlCwYUDoXNVzp3co ZGVmbGFuZz OhYeUsLfRbEcfieZGqQDZwAeBwm6qjq732cOIma1cq AOZuVtA3gJUiDTYpqYCeX684LWWlDJyah0ovx9CiIT QpuLZnc9N4GDNWMWvjJpFnM693XEXbLFdyv0ndc4Ne HREsaTHqm0P5RRKMhuutmCb1bVscQ78ix9W0HdaeN6 kcXYIqBYNiU3GlEJ3hIVEcDmr0XSC2IUH0MXVqRWYs K6JeMW1dLFYwaEZrACs2k1oajFbxOZCzDSU7e7oqMJ ythbU3CF3wgt6krSp6g9uzkuBqWEMeULRkbCPCQQAe N7BxxGeeHr5nuWb0u4urOxkumhH4hTOsMfPfYgBkHX epfGZsooydPPCpOQN8aWUYIOv6Y164s6tvSALjefAo gNxHjyzhw6yoS347JALtcAYcufIwAjFiQMYkxLCwfX C7VNGfWJ9kejszYhZsZZ9dqhvgHhHeYW0trza6HfNw NC5fwjjpYrEdAPiyDUUqxkdiBDRjb2JyrtpnWE7pE7 Wuz7A8dU6qhGAnZSZniWIbFkUmWBLibq1gqMYuVPyw ABQ5OEFiwqQcz8Kee9lrCdCbpnQvE6bbD7IzJUGuNT WrXCLiTzMmpkIdn2Cqb0BuoAPvgBc3b4frQCVwNGZv zMlmc2skLEG9TNRnH5M6yNGrj1sxNDjiRIPsgFF9uk vhPSslTFTchqC4nxqaLQnlYSZwvHT5afkhZQvhACIu YwS2xgjpIHxcVQGtHGU0YQjqg383RSX4ABxwWhxoTQ dlXHBnbmNvbnRccGduZGVjXHBsYWluXHBsYWluXGYw SFEvNjUzqPqczZsuzQ3lViMbYmHaXwupZO6yWUHeL2 pmrNOyMFTkGPXbK7oxZjGsbH2rfDulTPnzPiOeQuCf HbPGhTWlfL82FIOqdiH2DDLxm89gz5PgoDwtqpYpVT EfQFuqF2l4UFSzDOImBJJ7a0Ban1VgxF6osC6ktBds uA2ojNWqwRS8gnold9Fsl2RfK7xfeINrlOJwchQfMC BsYWluXGYxXGZzMjJcbGFuZzEwMzNcaGljaFxmMVxk GnXyHNUpLSksN9xtOgEuD6UyIARrXmZdhYXnM0behN FyXHBsYWluXGYxXGZzMjJcbGFuZzEwMzNcaGljaFxm XXpeJrMySDCaFUupO2ljMkZbU1BrPDWsRdWlB2VcRB MiTBJzPZtoEFiyZ2lwoCunsEWvjByhLPRqAT04gJWu vNYmJB0zSRVkHSZ9CW4ioDVqU1vejd9nuEWyck25zr JaxVtlSJOyxjLhbl5wUNtzOMJtOJQ6FAckPLDdZJwi PSebH6vwkYcrbDKfbNkgAH85Y7dygWPhJoB6gOCwV6 RkX7dxg56oQTuglHifCCEaAMFjrbYiQyU8bTsfN1tu ixtjBqdwYJZjE39vkDWvyHCKyVgcTHFsTTugmBozAP V0ROVPmm8sn8FiNSFwvk20rmUkb5JiwUg5UMMem338 pp2bjzA0HTDoFDS4TYd5BQQbIUWgdO6bOxA1qTBtTP OnAIG0UBE8SDJeh4M2WS7aULMfUQAlQCYgcdHmc4dm k5pxDPSeTLC2npCazI8yX3DmJIZai1MfqMclCFVjgB mqqrCtGCTvyISoLQWcnH42NBCuwDUfzUKoCOQlCWW4 RWjqqH2yWyKCumMcis4hcMDic0GsvOo3XANkdyUpwx ZtHIWjysUyY13qwPLnwDJuu3huftEyefAhdQLtuDBq YMLiEBE8HOe8OAObJOgtgOBzjzntKLnolvOpPTlhsf xyAKUzSTdmS9irXeWfKPCiwQtaODqwh6InWWNxQBVe GuihqhFpFQd1btMcDUJbrrgilVZrrjnfPCgtoeDfBU [file] [id number]= Gross assessment was performed at [facility], (test code = 2777) Department of Pathology, [address] [place] [id number], Technical component was performed at [facility], (test code = 2778) Department of Pathology, [address] [place] [id number], Professional component was performed [facility], at (test code = 2779) Department of Pathology, [address] [place] [id number], [id number] 15:59:00Surgical Pathology Report Case: [id number] Authorizing Provider: Jett Ribera MD Collected: 03/20/2020 12:06 PM Ordering Location: 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 Clinical correlationis recommended to assess the completeness of excision. KIDNEY: Nephrectomy (Kidney - All Specimens)8th Edition - Protocol posted: 07/04/2019SPECIMEN Procedure: Partial nephrectomy Specimen Laterality: Right TUMOR Tumor Site: Upper pole 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 Histologic Grade: G2: Nucleoli conspicuous and eosinophilic at 400x magnification, visiblebut not prominent at 100x magnification Tumor Size: Greatest Dimension (Centimeters): 5.7 cm Additional Dimension (Centimeters): 4 cm Additional Dimension (Centimeters): 3.2 cm Tumor Focality: Unifocal Tumor Extension: Tumor extension into major vein (renal vein or its segmental branches, inferior vena cava) Sarcomatoid Features: Not identified Rhabdoid Features: Not identified Tumor Necrosis: Present Percentage of Necrosis: 30 % Lymphovascular Invasion: Cannot be determined MARGINS Margins: Involved by invasive carcinoma Margin(s): Renal parenchymal margin (partial nephrectomy only) LYMPH NODES Regional Lymph Nodes: No lymph nodes submitted or found PATHOLOGIC STAGE CLASSIFICATION (pTNM, AJCC 8th Edition) Primary Tumor (pT): pT3a Regional Lymph Nodes (pN): pNX ADDITIONAL FINDINGS Pathologic Findings in Nonneoplastic Kidney: Glomerular disease: few sclerotic glomeruli Pathologic Findings in Nonneoplastic Kidney: Tubulointerstitial disease: atrophy and chronic inflammation [id number], [id number], [id number] massA. Right renal massA. The specimen is received fresh labelled with the patient's name, medical record number and " soft tissue, other" and consists of a 50 g, 6.1 x 4.2 x 3.2 cm ovoid portion of pickering renal parenchyma. Also received in the container is a deep attached portion of unremarkable, pickering-yellow perinephric fat measuring 5.5 x 4.5 x 1.4 cm.The renal capsule is intact, pink and smooth.The parenchymal margin displays 3 stitches. Adjacent to 1 of the stitches is a 0.5 x 0.5 cm defect. The specimen is serially sectioned to reveal a well-circumscribed, solid and cystic, rubio yellow,pickering-pink to red mass measuring 5.7 x 4.0 x 3.2 cm. The mass bulges through the area of disruption and abuts the renal capsule. The mass is at least 30% necrotic/hemorrhagic. The remaining renal parenchyma is pickering-pink and smooth. Cuprous Chloride Operator sections (entire proximal margin) are submitted.Ink code:Blue: Parenchymal marginRed: Renal capsuleBlack: Perinephric fat marginOrange: Parenchymal margin defect, not a true marginSection code:A1-A 17: Entire parenchymal margin submitted sequentially, perpendicular sectionsA 18-A 21: Mass to renal capsuleA 22-A 23: Cuprous Chloride Operator of perinephric fatCJ Sanchez PA (ASCP)Performed.The interpretation of this case included the use of immunohistochemistry or special stains.CD34 (A5, 7)- highlights the endothelium of the venous channel around the carcinomaPax 8 (A20)- highlights the nuclei of the carcinoma with adjacent fatty change.Control Slides Examined: In-house known positive controls were evaluated along with the test tissue. These control slides run alongside of the patients sample show appropriate staining. Internal positive and negative controls when available are evaluated Immunohistochemistry technical testing was performed at [facility], Pathology Laboratory where it was developed and its performance characteristics were determined. It has not been cleared or approved by the U.S. Food and Drug Administration. The FDA has determined that such clearance or approval is not necessary. The test is used for clinical purposes. It should not be regarded as investigational or for research. This laboratory is certified under the Clinical Laboratory Improvement Amendments of 1988 (CLIA-88) as qualified to perform high complexity clinical laboratory testing.[facility], Department of Pathology, [address] [place] [id number], [facility], Department of [facility], [address] [place] [address], [facility], Department of [facility], [address] [place] [address], ILY 12 [id number] 14:24:47Interface, External Ris In - 03/22/2020 2:24 PM CDTVentricular Rate 47 BPMAtrial Rate 47 BPMP-R Interval 174 msQRS Duration 136 msQ-T Interval 560 msQTC Calculation(Bazett) 495 msP Basalt 22 degreesR Basalt -3 degreesT Basalt 25 degreesMarked sinus bradycardiaRight bundle branch blockNonspecific ST abnormalityProlonged QTAbnormal ECGNo previous ECGs availableConfirmed by Julia WELLS BASANT ([id number]) on 03/22/2020 2:24:41 [facility] and [id number] 10:41:00 Test Item Value Reference Range Interpretation Comments Hemoglobin (test code = 9.6 13.7- 17.5 GM/DL L 786-4) Hematocrit (test code = 29.0 % 40.1-51 L 4544-3) HIRO (test code = HIRO) Cfa ID - [id number] Lab Interpretation (test Abnormal code = 04561-6) [facility]MO[facility] AND [id number] 10:41:00 Test Item Value Reference Range Interpretation Comments HEMOGLOBIN (BEAKER) (test code = 9.6 GM/DL 13.7-17.5 L 410) HEMATOCRIT (BEAKER) (test code = 29.0 % 40.1-51.0 L 411) Cfa ID - [id number] Metabolic [id number] 06:10:00 Test Item Value Reference Range Interpretation Comments Sodium (test code = 137 meq/L 111-970 8537-2) Potassium (test code = 4.4 meq/L 3.5-5.1 2823-3) Chloride (test code = 109 meq/L 98-107 H 2075-0) CO2 (test code = 21 meq/L 22-29 L 2028-9) BUN (test code = 16 mg/dL 7-21 3094-0) Creatinine (test code 1.33 mg/dL 0.57-1.25 H = 2160-0) Glucose (test code = 94 mg/dL 70-105 2345-7) Calcium (test code = 8.7 mg/dL 8.4-10.2 75855-9) EGFR (test code = 52 mL/min/1.73 [place] [address]-8) NOT ACCURATE CREATININE CLEARANCE IN PREDICTING GLOMERULAR FILTRATION RATE . ESTIMATED GFR I S NOT APPLICABLE FOR DIALYSIS PATIENTS. HIRO (test code = HIRO) Cfa ID - [id number] M Lab Interpretation Abnormal (test code = 94048-3) [facility] METABOLIC [id number] 06:10:00 Test Item Value Reference Range Interpretation Comments SODIUM (BEAKER) 137 meq/L 136-145 (test code = 381) POTASSIUM (BEAKER) 4.4 meq/L 3.5-5.1 (test code = 379) CHLORIDE (BEAKER) 109 meq/L 98-107 H (test code = 382) CO2 (BEAKER) (test 21 meq/L 22-29 L code = 355) BLOOD UREA NITROGEN 16 mg/dL 7-21 (BEAKER) (test code = 354) CREATININE (BEAKER) 1.33 mg/dL 0.57-1.25 H (test code = 358) GLUCOSE RANDOM 94 mg/dL 70-105 (BEAKER) (test code = 652) CALCIUM (BEAKER) 8.7 mg/dL 8.4-10.2 (test code = 697) EGFR (BEAKER) (test 52 mL/min/1.73 ESTIMA JUMANA GFR IS code = 1092) sq m NOT ACCURATE CREATININE CLEARANCE IN PREDICTING GLOMERULAR FILTRATION RATE . ESTIMATED GFR I S NOT APPLICABLE FOR DIALYSIS PATIEN TS. Cfa ID - NURA MHEMOGLOBIN AND [id number] 05:45:00 Test Item Value Reference Range Interpretation Comments HEMOGLOBIN (BEAKER) (test code = 9.7 GM/DL 13.7-17.5 L 410) HEMATOCRIT (BEAKER) (test code = 28.9 % 40.1-51.0 L 411) Cfa ID - [id number] METABOLIC [id number] 05:08:00 Test Item Value Reference Range Interpretation Comments SODIUM (BEAKER) 135 meq/L 136-145 L (test code = 381) POTASSIUM (BEAKER) 4.9 meq/L 3.5-5.1 (test code = 379) CHLORIDE (BEAKER) 105 meq/L 98-107 (test code = 382) CO2 (BEAKER) (test 23 meq/L 22-29 code = 355) BLOOD UREA NITROGEN 19 mg/dL 7-21 (BEAKER) (test code = 354) CREATININE (BEAKER) 1.50 mg/dL 0.57-1.25 H (test code = 358) GLUCOSE RANDOM 146 mg/dL 70-105 H (BEAKER) (test code = 652) CALCIUM (BEAKER) 8.7 mg/dL 8.4-10.2 (test code = 697) EGFR (BEAKER) (test 45 mL/min/1.73 ESTIMA JUMANA GFR IS code = 1092) sq m NOT ACCURATE CREATININE CLEARANCE IN PREDICTING GLOMERULAR FILTRATION RATE . ESTIMATED GFR I S NOT APPLICABLE FOR DIALYSIS PATIEN TS. Cfa ID - TESFAYE WHEMOGLOBIN AND [id number] 04:37:00 Test Item Value Reference Range Interpretation Comments HEMOGLOBIN (BEAKER) (test code = 11.0 GM/DL 13.7-17.5 L 410) HEMATOCRIT (BEAKER) (test code = 33.9 % 40.1-51.0 L 411) Cfa ID - [id number] METABOLIC [id number] 20:34:00 Test Item Value Reference Range Interpretation Comments SODIUM (BEAKER) 137 meq/L 136-145 (test code = 381) POTASSIUM (BEAKER) 4.4 meq/L 3.5-5.1 (test code = 379) CHLORIDE (BEAKER) 106 meq/L 98-107 (test code = 382) CO2 (BEAKER) (test 23 meq/L 22-29 code = 355) BLOOD UREA NITROGEN 20 mg/dL 7-21 (BEAKER) (test code = 354) CREATININE (BEAKER) 1.63 mg/dL 0.57-1.25 H (test code = 358) GLUCOSE RANDOM 178 mg/dL 70-105 H (BEAKER) (test code = 652) CALCIUM (BEAKER) 8.6 mg/dL 8.4-10.2 (test code = 697) EGFR (BEAKER) (test 41 mL/min/1.73 ESTIMA JUMANA GFR IS code = 1092) sq m NOT ACCURATE CREATININE CLEARANCE IN PREDICTING GLOMERULAR FILTRATION RATE . ESTIMATED GFR I S NOT APPLICABLE FOR DIALYSIS PATIEN TS. Cfa ID - [id number] 14:31:00 Test Item Value Reference Range Interpretation Comments MAGNESIUM (BEAKER) (test No result obtained. code = 627) Sample moderate ly HEMOLYZED. Cfa ID - [id number] 14:31:00MagnesiumComment: No result obtained. Sample moderately HEMOLYZED.[facility] CE NTEROperator ID - NTPCHI [facility] CenterSI METABOLIC PANEL 2020-03-20 14:30:00 Test Item Value Reference Range Interpretation Comments SODIUM (BEAKER) (test 135 meq/L 136-145 L code = 381) POTASSIUM (BEAKER) No result obtained. (test code = 379) Sample mod erately HEMOLYZED. CHLORIDE (BEAKER) 108 meq/L 98-107 H (test code = 382) CO2 (BEAKER) (test 21 meq/L 22-29 L code = 355) BLOOD UREA NITROGEN 21 mg/dL 7-21 (BEAKER) (test code = 354) CREATININE (BEAKER) No resul t obtained. (test code = 358) Sample mod erately HEMOLYZED. GLUCOSE RANDOM 161 mg/dL 70-105 H (BEAKER) (test code = 652) CALCIUM (BEAKER) (test 8.3 mg/dL 8.4-10.2 L code = 697) EGFR (BEAKER) (test ESTIMATE D GFR IS NOT code = 1092) ACCURATE CREATININE MACIEL KINGA IN PREDICTING GLOMERULAR FILT RATION RATE. ESTIMATED GFR IS NOT APPLICABLE FOR DIALYSIS PATIEN TS. Cfa ID - NTPHEMOGLOBIN AND [id number] 13:45:00 Test Item Value Reference Range Interpretation Comments HEMOGLOBIN (BEAKER) (test code = 10.9 GM/DL 13.7-17.5 L 410) HEMATOCRIT (BEAKER) (test code = 33.1 % 40.1-51.0 L 411) Cfa ID - [id number] Leuko-Red [id number] 08:31:00 Test Item Value Reference Range Interpretation Comments CROSSMATCH (test code = 2264) COMPATIBLE Unit ABO (test code = O Pos 9918430) UNIT NUMBER (test code = [id number] 934-0) Status (test code = 2633243) READY Blood Bank Product (test code RED BLOOD CELLS = 2263) PRODUCT CODE (test code = S2557T63 933-2) [facility] HospitalABORH, [id number] 08:17:00 Test Item Value Reference Range Interpretation Comments ABO Grouping (test code = 2588) O Rh Factor (test code = 2589) POS [facility] HospitalType and screen, [id number] 08:01:00 Test Item Value Reference Range Interpretation Comments ABO/RH AUTOMATED (BEAKER) (test O POSITIVE code = 2260) Ab Scrn (test code = 890-4) NEGATIVE [facility] HospitalRAD, CHEST, 2 [id number] 16:36:00Reason for Exam:->renal massFINAL REPORT EXAMINATION: Chest PA and lateral views INDICATION: Renal mass.COMPARISON: None FINDINGS:TUBES and LINES: None. LUNGS: Lungs are well inflated. Mild bibasilar subsegmental atelectasis. 3 mm oval calcific density projected on the left upper lobe just medial to the sternoclavicular junction. There is no evidence of pneumonia or pulmonary edema. PLEURA: Nopleural effusion or pneumothorax. HEART AND MEDIASTINUM: The cardiomediastinal silhouette is unremarkable. There are atherosclerotic calcifications within the aorta. BONES AND SOFT TISSUES: No acute osseous lesion. Soft tissues are unremarkable. UPPER ABDOMEN: No free air under the diaphragm. IMPRESSION: No acute thoracic abnormality. Signed: Efra Lerner MDReport Verified Date/Time: 09/26/2019 16:36:03 Reading Location: [facility] Reading Room [address] [place] [address]
--- NOTE | 2020-10-31 19:07 | RAD REPORT ---
EXAM DESCRIPTION: RAD - Lumbar Spine 3 Views - 10/31/2020 6:38 pm CLINICAL HISTORY: PAIN Radiculopathy COMPARISON: No comparisons FINDINGS: Vertebral body heights appear maintained. No compression fracture noted. Prominent disc th inning with posterior osteophyte and vacuum disc degeneration is present at L5-S1. Posterior osteophy te also present at L2-3 L3-4 and L4-5. Mild degenerative dextroscoliosis is present. Aortic atherosclerosis is seen. IMPRESSION: Moderate lower lumbar degenerative spondylosis.
[2020-10-31] MEDS ORDERED: TRAMADOL HCL 50 MG TAB ONE (21:42)
[2020-10-31 21:55] LABS: Urine Blood TRACE (NEG); Urine Glucose NEGATIVE (NEG); Urine Protein NEGATIVE (NEG); Urine Specific Gravity 1.025 (1.005-1.030); Urine pH 5.5 (5.0-7.0)
--- NOTE | 2020-10-31 22:06 | EDPHYS ---
Physician Documentation [facility] Name: Patrice Charles Age: 80 yrs Sex: Male : 1940 Arrival Date: 10/31/2020 Time: 17:11 Bed 26 Private MD: Biju Ramos R ED Physician Jose Eduardo Rodriges HPI: 10/31 21:24 This 80 yrs old Male presents to ER via Wheelchair with complaints of Back mh7 Pain, Hip Pain. 21:25 The patient presents with pain that is acute, with no known mechanism of injury. The mh7 symptoms are located in the low back. Onset: The symptoms/episode began/occurred 2 day(s) ago. The pain radiates to the right hip, right leg. Associated signs and symptoms: Pertinent negatives: abdominal pain, chest pain, constipation, dysuria, fever, headache, hematuria, incontinence, nausea, numbness, tingling, urinary retention, vomiting, weakness. The problem was sustained when bending over, from twisting, working in his garden. Modifying factors: The patient symptoms are alleviated by tramadol, the patient symptoms are aggravated by bending, movement, walking. Severity of symptoms: At their worst the symptoms were moderate, 2 day(s) ago, in the emergency department the symptoms have improved, moderately. Historical: - Allergies: 17:55 codeine sulfate; aa5 - PMHx: 17:55 BPH; Hypertension; UTI; aa5 - PSHx: 17:56 Right kidney; aa5 - Immunization history:: Adult Immunizations unknown. - Social history:: Smoking status: Patient reports the use of cigarette tobacco products, smokes one pack cigarettes per day. ROS: 21:25 Constitutional: Negative for fever, chills, and weight loss, Eyes: Negative for injury, mh7 pain, redness, and discharge, ENT: Negative for injury, pain, and discharge, Neck: Negative for injury, pain, and swelling, Cardiovascular: Negative for chest pain, palpitations, and edema, Respiratory: Negative for shortness of breath, cough, wheezing, and pleuritic chest pain, Abdomen/GI: Negative for abdominal pain, nausea, vomiting, diarrhea, and constipation, : Negative for injury, bleeding, discharge, and swelling, MS/Extremity: Negative for injury and deformity, Skin: Negative for injury, rash, and discoloration, Neuro: Negative for headache, weakness, numbness, tingling, and seizure, Psych: Negative for depression, anxiety, suicide ideation, homicidal ideation, and hallucinations, Allergy/Immunology: Negative for hives, rash, and allergies, Endocrine: Negative for neck swelling, polydipsia, polyuria, polyphagia, and marked weight changes, Hematologic/Lymphatic: Negative for swollen nodes, abnormal bleeding, and unusual bruising. Exam: 21:25 Constitutional: This is a well developed, well nourished patient who is awake, alert, mh7 and in no acute distress. Head/Face: Normocephalic, atraumatic. Eyes: Pupils equal round and reactive to light, extra-ocular motions intact. Lids and lashes normal. Conjunctiva and sclera are non-icteric and not injected. Cornea within normal limits. Periorbital areas with no swelling, redness, or edema. Neck: Trachea midline, no thyromegaly or masses palpated, and no cervical lymphadenopathy. Supple, full range of motion without nuchal rigidity, or vertebral point tenderness. No Meningismus. Chest/axilla: Normal chest wall appearance and motion. Nontender with no deformity. No lesions are appreciated. Cardiovascular: Regular rate and rhythm with a normal S1 and S2. No gallops, murmurs, or rubs. Normal PMI, no JVD. No pulse deficits. Respiratory: Lungs have equal breath sounds bilaterally, clear to auscultation and percussion. No rales, rhonchi or wheezes noted. No increased work of breathing, no retractions or nasal flaring. Abdomen/GI: Soft, non-tender, with normal bowel sounds. No distension or tympany. No guarding or rebound. No evidence of tenderness throughout. 21:25 Skin: Warm, dry with normal turgor. Normal color with no rashes, no lesions, and no evidence of cellulitis. MS/ Extremity: Pulses equal, no cyanosis. Neurovascular intact. Full, normal range of motion. Neuro: Awake and alert, GCS 15, oriented to person, place, time, and situation. Cranial nerves II-XII grossly intact. Motor strength 5/5 in all extremities. Sensory grossly intact. Cerebellar exam normal. Normal gait. Psych: Awake, alert, with orientation to person, place and time. Behavior, mood, and affect are within normal limits. 21:25 Back: pain, that is moderate, of the lumbar area and sacrum, ROM is painful, with all movement, normal spinal alignment noted, CVA tenderness, is absent, vertebral tenderness, is appreciated at lumbar area, muscle spasm, is appreciated in the lumbar area, Straight leg raises: pain bilaterally. Vital Signs: 17:50 BP 150 / 56; Pulse 48; Resp 18 S; Temp 98.0(TE); Pulse Ox 98% on R/A; Pain 8/10; aa5 21:39 BP 155 / 71; Pulse 49; Resp 18; Pulse Ox 97% on R/A; lp1 MDM: 22:02 Differential diagnosis: Fracture Osteoarthritis ruptured disc, sprain, vertebral mh7 fracture, Sciatica. Data reviewed: vital signs, nurses notes, radiologic studies, plain films. Data interpreted: Pulse oximetry: on room air is 97 %. Interpretation: normal. Counseling: I had a detailed discussion with the patient and/or guardian regarding: the historical points, exam findings, and any diagnostic results supporting the discharge/admit diagnosis, the presence of at least one elevated blood pressure reading (>120/80) during this emergency department visit, lab results, radiology results, the need for outpatient follow up, to return to the emergency department if symptoms worsen or persist or if there are any questions or concerns that arise at home. Response to treatment: the patient's symptoms have markedly improved after treatment. 22:05 Patient medically screened. [facility] 10/31 21:18 Order name: Urine Dipstick--Ancillary (enter results) tt3 10/31 18:16 Order name: Lumbar Spine (3 Views) XRAY; Complete Time: 19:44 snw 10/31 19:45 Order name: Urine Dipstick-Ancillary (obtain specimen); Complete Time: 20:39 [facility] Administered Medications: 21:39 Drug: traMADol 50 mg Route: PO; lp1 Disposition: 10/31/20 22:05 Discharged to Home. Impression: Sciatica, right side. - Condition is Stable. - Discharge Instructions: Sciatica, Ghgd-ja-Czcy, Back Exercises. - Prescriptions for Tramadol 50 mg Oral Tablet - take 1 tablet by ORAL route every 8 hours as needed; 12 tablet. - Medication Reconciliation Form, Thank You Letter, Antibiotic Education, Prescription Opioid Use form. - Follow up: Private Physician; When: 1 - 2 days; Reason: Worsening of condition, Recheck today's complaints, Continuance of care, Re-evaluation by your physician. - Problem is an acute exacerbation. - Symptoms have improved. Signatures: Dispatcher [employer] EDBell Gibson, RN RN aa5 Ivory Castro RN RN lp1 Jose Eduardo Rodriges MD MD mh7 Corrections: (The following items were deleted from the chart) 22:24 22:05 10/31/2020 22:05 Discharged to Home. Impression: Sciatica, right side. Condition lp1 is Stable. Forms are Medication Reconciliation Form, Thank You Letter, Antibiotic Education, Prescription Opioid Use. Follow up: Private Physician; When: 1 - 2 days; Reason: Worsening of condition, Recheck today's complaints, Continuance of care, Re-evaluation by your physician. Problem is an acute exacerbation. Symptoms have improved. mh7
--- NOTE | 2020-10-31 22:06 | ER ---
Nurse's Notes [facility] Name: Patrice Charles Age: 80 yrs Sex: Male : 1940 Arrival Date: 10/31/2020 Time: 17:11 Bed 26 Private MD: Biju Ramos R Diagnosis: Sciatica, right side Presentation: 10/31 17:50 Chief complaint: Patient states: right low back pain radiating down to right leg that aa5 began 2 days ago. Pt denies fall or known injury. 17:50 Coronavirus screen: Client denies travel out of the [place] in the last 14 days. At this aa5 time, the client does not indicate any symptoms associated with coronavirus-19. Ebola Screen: Patient negative for fever greater than or equal to 101.5 degrees Fahrenheit, and additional compatible Ebola Virus Disease symptoms. Initial Sepsis Screen: Does the patient meet any 2 criteria? No. Patient's initial sepsis screen is negative. Does the patient have a suspected source of infection? No. Patient's initial sepsis screen is negative. Risk Assessment: Do you want to hurt yourself or someone else? Patient reports no desire to harm self or others. Onset of symptoms was October 2020. 17:50 Method Of Arrival: Wheelchair aa5 17:50 Acuity: TAYLOR 3 aa5 Historical: - Allergies: 17:55 codeine sulfate; aa5 - PMHx: 17:55 BPH; Hypertension; UTI; aa5 - PSHx: 17:56 Right kidney; aa5 - Immunization history:: Adult Immunizations unknown. - Social history:: Smoking status: Patient reports the use of cigarette tobacco products, smokes one pack cigarettes per day. Screenin:31 Abuse screen: Denies threats or abuse. Denies injuries from another. Nutritional lp1 screening: No deficits noted. Tuberculosis screening: No symptoms or risk factors identified. Fall Risk None identified. Assessment: 19:29 General: Appears in no apparent distress. Behavior is calm, cooperative, appropriate lp1 for age. Pain: Complains of pain in right low back Pain radiates to right quadriceps Pain currently is 7 out of 10 on a pain scale. Quality of pain is described as aching. Neuro: Level of Consciousness is awake, alert, obeys commands, Oriented to person, place, time, situation, Gait is steady. Cardiovascular: Patient's skin is warm and dry. Respiratory: Respiratory effort is even, unlabored. GI: No signs and/or symptoms were reported involving the gastrointestinal system. : Denies burning with urination. EENT: No signs and/or symptoms were reported regarding the EENT system. Derm: Skin is intact, Skin is dry, Skin is normal. Musculoskeletal: Circulation, motion, and sensation intact. 21:18 Reassessment: Dr. Rodriges spoke with patient's about imaging results, demonstrates lp1 understanding ; Verbal order from Provider for Tramadol 50mg PO now. 21:39 Reassessment: Patient appears in no apparent distress at this time. Patient ambulating lp1 independently to bathroom; reports pain decreased to right low back at this time Patient states feeling better. Vital Signs: 17:50 BP 150 / 56; Pulse 48; Resp 18 S; Temp 98.0(TE); Pulse Ox 98% on R/A; Pain 8/10; aa5 21:39 BP 155 / 71; Pulse 49; Resp 18; Pulse Ox 97% on R/A; lp1 ED Course: 17:11 Patient arrived in ED. ag5 17:12 Biju Ramos MD is Private Physician. ag5 17:50 Arm band placed on. aa5 17:54 Triage completed. aa5 18:38 Lumbar Spine (3 Views) XRAY In Process Unspecified. EDMD 19:29 Ivory Castro, ABBY is Primary Nurse. lp1 19:30 Jose Eduardo Rodriges MD is Attending Physician. mh7 19:31 Patient has correct armband on for positive identification. lp1 19:31 No provider procedures requiring assistance completed. lp1 21:40 Patient did not have IV access during this emergency room visit. lp1 Administered Medications: 21:39 Drug: traMADol 50 mg Route: PO; lp1 Outcome: 22:05 Discharge ordered by . [facility] 22:15 Discharged to home via wheelchair, with family. lp1 22:15 Condition: good 22:15 Discharge instructions given to patient, significant other, Instructed on discharge instructions, follow up and referral plans. medication usage, Demonstrated understanding of instructions, follow-up care, medications, Prescriptions given X 1. 22:24 Patient left the ED. lp1 Signatures: Dispatcher [facility] EDMD Bell Pack RN RN aa5 Ivory Castro RN RN lp1 Hany Arnold 5 Jose Eduardo Rodriges MD MD mh7 Corrections: (The following items were deleted from the chart) 17:57 17:50 Acuity: TAYLOR 4 aa5 aa5
[2020-10-31 22:29] VITALS: TEMP 98
[2020-10-31 22:30] VITALS: BP 155/71; O2SAT 97
== END 2020-10-31 22:24 | disposition home or self-care (01) ==
LOC: ER 17:10
DX: M54.31 Sciatica, right side (principal); I10 Essential (primary) hypertension; F17.210 Nicotine dependence, cigarettes, uncomplicated; Z88.5 Allergy status to narcotic agent
CPT/HCPCS: 72100; 81003; 99283